=== PATIENT | female | born 1950 | race African-American/Black ===

== ENCOUNTER 2019-04-04 00:57 | Inpatient (IN) | payer OTHER ==
[~2019-04-04] VITALS: Ht 160 cm; Wt 40.7 kg
[2019-04-04] VITALS (31 sets, daily range): BP systolic 41–124; BP diastolic 18–78
--- NOTE | ~2019-04-04 | EMS ---
[address] [address] EMS Patient Care Report Name: ELAINE ARANDA Room #: 236-P ADM IN M.R.#: [id number] Admission: 04/04/19 Attend Phys: Chase Dill MD Discharge: Date of : 48 Report #: [id number] THIS REPORT FOR: //name// Report Transmitted: 04/04/2019 05:06 EMS Care Summary [place], [place]/[facility] Incident [id number] @ 04/04/2019 00:00 Incident Location [id number] [place] [address] Patient ELAINE ARANDA Female, 69 Years 1950 Patient Address [id number] [place], [place] [id number] Patient History Congestive Heart Failure (CHF),Chronic Obstructive Pulmonary Disease (COPD),Hyperlipidemia, Patient Allergies No known allergies, Patient Medications Carvedilol, Lisinopril, Clopidogrel, Atorvastatin, Chief Complaint cardiac arrest Disposition Transported [facility] Reason Cardiac Arrest/ Transported To [facility] Narrative pt complains of cardiac arrest. according to ne staff, pt was found leaning over in chair with emesis- bp [address] [address] EMS Patient Care Report Name: ELAINE ARANDA Room #: 236-P ADM IN M.Cindy.#: [id number] Admission: 04/04/19 Attend Phys: Chase Dill MD Discharge: Date of : 48 Report #: [id number] systolic. they report a minute later pt was unresponsive in cardiac arrest- cpr initiated. pt found lying on floor of nh room in care of facility- cpr in progress. pt is unresponsive/ pulseless/ apneic. cpr continued, ekg, ijel/capnography/ suction, bvm o2, iv, epi,- rosc-strong femoral, vs, bs, d10, 12lead, move to amb, intubation/ suction, glucogan. decision to intubate due to pt vomiting requiring suctioning. during transport pt's hr began to decrease- et tube removed and ijel placed. pt's hr increased back to normal rate. spo2 reading 99 at one point but otherwise unable to detect even after multiple attempts. unable to maintain adequate d10 flow- glucagon administered. Initial Vitals @00:22P: 87,R: 11,EtCO2: 38, @00:15P: 139, @00:22P: 91,R: 9,EtCO2: 35, @00:11P: 43, @00:30P: 91,R: 9,EtCO2: 41, @00:43P: 98,R: 11,EtCO2: 21,SpO2: 85, @00:46P: 88,R: 9,EtCO2: 20, @00:45P: 88,R: 9,EtCO2: 21, @00:17P: 159,EtCO2: 31, @00:41P: 97,R: 13,EtCO2: 20, @00:39P: 103,R: 16,EtCO2: 21,SpO2: 100, @00:50P: 48,R: 10,EtCO2: 19, @00:43P: 97,R: 12,EtCO2: 23, @00:14P: 172, @00:56P: 106,R: 9,GCS: 3,EtCO2: 25, @00:25P: 97,R: 14,BP: 115/81,Pain: 0/10,GCS: 3,Glucose: 46,EtCO2: 35,Revised Trauma: 8, @00:19P: 94,R: 8,BP: 78/64,GCS: 3,Glucose: 43,EtCO2: 48,Revised Trauma: 5, @00:49P: 44,R: 13,EtCO2: 14, @00:43P: 96,R: 9,EtCO2: 23, @00:18P: 83,R: 9,EtCO2: 39, @00:36P: 101,R: 9,EtCO2: 28,SpO2: 99, @00:55P: 104,R: 12,EtCO2: 23, @00:12P: 140, @00:34P: 102,R: 9,EtCO2: 34, @00:09P: 0,GCS: 3, @00:44P: 91,R: 8,EtCO2: 0, Assessments @00:07MENTAL:Unresponsive,SKIN:Other,HEENT:Eyes: Left Pupil: 5-mm,Eyes: Right Pupil: 5-mm,Head/Face: No Abnormalities,Neck/Airway: No Abnormalities,LUNG SOUNDS:ABDOMEN:PELVIS//GI:Pelvis GUOther,EXTREMITIES:Right Leg: [facility] [address] [facility] [place] [address] EMS Patient Care Report Name: ELAINE ARANDA Room #: 236-P [facility] IN M.R.#: [id number] Admission: 04/04/19 Attend Phys: Chase Dill MD Discharge: Date of : 48 Report #: [id number] Other,Capillary Refill: Right Upper: > 5 Sec,Left Arm: No Abnormalities,Right Arm: No Abnormalities,PULSE:Femoral: Absent,NEURO: Impression Cardiac arrest Procedures @PTAResponse: UnchangedSucceeded@00:07ALS AssessmentSucceeded@00:11Saline Lock 0cc (20 ga) Site: Forearm-RightResponse: UnchangedFailed@00:10iGEL Response: ImprovedSucceeded@00:13Oxygen FlowRate: 15 Device: Bag Valve Mask (BVM) Response: ImprovedSucceeded@00:093-Lead ECGResponse: UnchangedSucceeded@00:14Saline Lock 0cc (22 ga) Site: Forearm-RightResponse: UnchangedSucceeded@00:37Orotracheal Intubation Complications: Patient Vomiting/Aspiration,Response: ImprovedSucceeded@00:11Suction Response: ImprovedSucceeded@00:2212-Lead ECGResponse: UnchangedSucceeded@00:15Epinephrine 1:10 - 1 Milligrams (mg) - Intravenous (IV)Response: Improved@00:37Suction Response: ImprovedSucceeded@00:20Dextrose 10% - 20 Milliliters (ml) - Intravenous (IV)Response: Unchanged@00:43Glucagon - 1 Milligrams (mg) - Intramuscular (IM)Response: Unchanged@00:50iGEL Response: ImprovedSucceeded Timeline COFFEE HOST,Response: UnchangedSucceeded, 00:00,Call Received 00:00,Dispatch Notified 00:00,Dispatched 00:02,En Route 00:05,On Scene 00:07,At Patient 00:07,ALS Assessment,Succeeded, 00:09,3-Lead ECG,Response: UnchangedSucceeded, 00:09,BP: / M,PULSE: 0,RR: R,SPO2: Ox,ETCO2: ,BG: ,PAIN: ,GCS: 3, 00:10,iGEL Response: ImprovedSucceeded, 00:11,Saline Lock 0cc 20 ga Site: Forearm-Right,Response: UnchangedFailed, 00:11,Suction Response: ImprovedSucceeded, 00:11,BP: / M,PULSE: 43,RR: R,SPO2: Ox,ETCO2: ,BG: ,PAIN: ,GCS: , 00:12,BP: / M,PULSE: 140,RR: R,SPO2: Ox,ETCO2: ,BG: ,PAIN: ,GCS: , 00:13,Oxygen FlowRate: 15 Device: Bag Valve Mask (BVM) Response: ImprovedSucceeded, 00:14,Saline Lock 0cc 22 ga Site: Forearm-Right,Response: UnchangedSucceeded, 00:14,BP: / M,PULSE: 172,RR: R,SPO2: Ox,ETCO2: ,BG: ,PAIN: ,GCS: , 00:15,Epinephrine 1:10 - 1 Milligrams (mg) - Intravenous (IV),Response: Improved 00:15,BP: / M,PULSE: 139,RR: R,SPO2: Ox,ETCO2: ,BG: ,PAIN: ,GCS: , 00:17,BP: / M,PULSE: 159,RR: R,SPO2: Ox,ETCO2: 31 ,BG: ,PAIN: ,GCS: , 00:18,BP: / M,PULSE: 83,RR: 9 R,SPO2: Ox,ETCO2: 39 ,BG: ,PAIN: ,GCS: , 00:19,BP: 78/64 M,PULSE: 94,RR: 8 R,SPO2: Ox,ETCO2: 48 ,B,PAIN: ,GCS: 3, 00:20,Dextrose 10% - 20 Milliliters (ml) - Intravenous (IV),Response: Unchanged [facility] [address] [place] [address] EMS Patient Care Report Name: ELAINE ARANDA Room #: 236-P ADM IN Milly#: [id number] Admission: 04/04/19 Attend Phys: Chase Dill MD Discharge: Date of : 48 Report #: [id number] 00:22,12-Lead ECG,Response: UnchangedSucceeded, 00:22,BP: / M,PULSE: 87,RR: 11 R,SPO2: Ox,ETCO2: 38 ,BG: ,PAIN: ,GCS: , 00:22,BP: / M,PULSE: 91,RR: 9 R,SPO2: Ox,ETCO2: 35 ,BG: ,PAIN: ,GCS: , 00:25,BP: 115/81 M,PULSE: 97,RR: 14 R,SPO2: Ox,ETCO2: 35 ,B,PAIN: 0,GCS: 3, 00:30,BP: / M,PULSE: 91,RR: 9 R,SPO2: Ox,ETCO2: 41 ,BG: ,PAIN: ,GCS: , 00:33,Depart Scene 00:34,BP: / M,PULSE: 102,RR: 9 R,SPO2: Ox,ETCO2: 34 ,BG: ,PAIN: ,GCS: , 00:36,BP: / M,PULSE: 101,RR: 9 R,SPO2: 99 Ox,ETCO2: 28 ,BG: ,PAIN: ,GCS: , 00:37,Orotracheal Intubation Complications: Patient Vomiting/Aspiration,,Response: ImprovedSucceeded, 00:37,Suction Response: ImprovedSucceeded, 00:39,BP: / M,PULSE: 103,RR: 16 R,SPO2: 100 Ox,ETCO2: 21 ,BG: ,PAIN: ,GCS: , 00:41,BP: / M,PULSE: 97,RR: 13 R,SPO2: Ox,ETCO2: 20 ,BG: ,PAIN: ,GCS: , 00:43,Glucagon - 1 Milligrams (mg) - Intramuscular (IM),Response: Unchanged 00:43,BP: / M,PULSE: 97,RR: 12 R,SPO2: Ox,ETCO2: 23 ,BG: ,PAIN: ,GCS: , 00:43,BP: / M,PULSE: 98,RR: 11 R,SPO2: 85 Ox,ETCO2: 21 ,BG: ,PAIN: ,GCS: , 00:43,BP: / M,PULSE: 96,RR: 9 R,SPO2: Ox,ETCO2: 23 ,BG: ,PAIN: ,GCS: , 00:44,BP: / M,PULSE: 91,RR: 8 R,SPO2: Ox,ETCO2: 0 ,BG: ,PAIN: ,GCS: , 00:45,BP: / M,PULSE: 88,RR: 9 R,SPO2: Ox,ETCO2: 21 ,BG: ,PAIN: ,GCS: , 00:46,BP: / M,PULSE: 88,RR: 9 R,SPO2: Ox,ETCO2: 20 ,BG: ,PAIN: ,GCS: , 00:49,BP: / M,PULSE: 44,RR: 13 R,SPO2: Ox,ETCO2: 14 ,BG: ,PAIN: ,GCS: , 00:50,iGEL Response: ImprovedSucceeded, 00:50,BP: / M,PULSE: 48,RR: 10 R,SPO2: Ox,ETCO2: 19 ,BG: ,PAIN: ,GCS: , 00:54,At Destination 00:55,BP: / M,PULSE: 104,RR: 12 R,SPO2: Ox,ETCO2: 23 ,BG: ,PAIN: ,GCS: , 00:56,BP: / M,PULSE: 106,RR: 9 R,SPO2: Ox,ETCO2: 25 ,BG: ,PAIN: ,GCS: 3, 01:24,Call Closed Disclaimer v1.1 Copyright 2019 [employer] This EMS Care Summary contains data elements from the applicable legal record (which may be displayed differently). It is designed to provide pertinent information for the following purposes: continuity of care, clinical quality, and state data reporting. The complete legal record is available to ED staff and administrators of the receiving hospital in [facility]'s Patient Tracker. All data is provided "as is."
[2019-04-04 03:01] LABS: ICTOTEST (BILI CONFIRMATORY) Positive (Negative); URINE BILIRUBIN 1+ (Negative); URINE BLOOD 1+ (Negative); URINE CLARITY SL CLOUDY; URINE COLOR YELLOW; URINE GLUCOSE-RANDOM* NEGATIVE (Negative); URINE KETONES 1+ (Negative); URINE LEUKOCYTES-REFLEX 2+ (Negative); URINE NITRITE-REFLEX NEGATIVE (Negative); URINE PROTEIN (DIPSTICK) NEGATIVE (Negative)
[2019-04-04 03:01] LABS: MCH 30.8 pg (26.0-34.0); MCV 96.3 fL (80.0-100.0); PLATELET COUNT 186 thou/uL (150-400); RBC 1.71 mil/uL (4.20-5.00)
[2019-04-04 03:04] LABS: CALCIUM 7.2 mg/dL (8.5-10.1); CREATININE 0.8 mg/dL (0.6-1.0); POTASSIUM 4.4 mmol/L (3.5-5.1)
[2019-04-04 03:05] LABS: HEMOGLOBIN 5.3 gm/dL (12.0-15.0); WBC 1.3 thou/uL (4.0-11.0)
[2019-04-04 03:06] LABS: HEMATOCRIT 16.5 % (37.0-47.0)
[2019-04-04 03:11] LABS: BACTERIA-REFLEX None Seen /HPF (None Seen); SQUAMOUS 0-3 Few /LPF (0-3); TRANSITIONAL EPITHEL CELL 0-3 Few /LPF (None Seen); URINE RBC 3-10 Few /HPF (0-2); YEAST-REFLEX Present (None Seen)
[2019-04-04 03:12] LABS: APTT 58.6 Seconds (24.5-32.8); INR 1.8; PROTIME 19.2 Seconds (9.3-11.4)
[2019-04-04 03:12] LABS: CALCIUM OXALATE 0-3 Few /LPF (None Seen); HYALINE CASTS 0-3 Few /LPF (None Seen); MUCUS 4-6 Moderate strn/LPF (None Seen)
[2019-04-04 03:13] LABS: BE(vivo) -11.3 mmol/L (-2 to +3); HCO3 14.1 mmol/L (22.0-26.0); PCO2 29.1 mmHg (35.0-45.0); PO2 346.2 mmHg (80.0-100.0); sO2 99.7 % (92.0-98.0)
[2019-04-04 03:14] LABS: ALBUMIN 0.7 g/dL (3.4-5.0); DIRECT BILIRUBIN 0.5 mg/dL (<0.1-0.3); MAGNESIUM 1.9 mg/dL (1.8-2.4); TOTAL BILIRUBIN 0.6 mg/dL (<0.1-1.0); TOTAL PROTEIN 3.3 g/dL (6.4-8.2); TROPONIN-I 0.44 ng/mL (<0.06)
[2019-04-04 03:14] LABS: pH 7.303 (7.360-7.450)
[2019-04-04 03:34] LABS: ABSOLUTE NEUTROPHILS 0.9 thou/uL (1.4-8.2); ANISOCYTOSIS 1+; BURR CELLS 1+; HYPOCHROMASIA 1+; MICROCYTES 1+
[2019-04-04 03:38] LABS: LARGE PLATELETS FEW
--- NOTE | 2019-04-04 04:02 | NUR ---
DR DIAZ TALKED WITH DAUGHTER AT 0152
--- NOTE | 2019-04-04 04:53 | NUR ---
PT ADMITTED to ICU room 236 from ED at 0340. Pt is intubated with 7.0, 23 cm at lip, on vent with Tv 400, FiO2 100%, AC 16, peep 5. Pt is non-responsive to all stimuli. ED sheet under pt very bloody and pt is weeping serous or oozing blood from serveral sites. Pt has 4+ pitting edema generalized. Pt has avina cath, cloudy yellow urine wih sediment in bag. SBP 40-60 despite Levophed at 30 mcg/min. Avery Soraino TRAVELING CLERK here at 0345; 1 liter saline and 250 5% albumin given per oders. Dr. Howard notified of admit and pt status. Blood sugar on arrival was 411; D10 stopped. Currently pt on Dopamine at 20 mcg/kg/min and Vasopressin 0.04 units/min, SBP 63. Pt hgb 5.6, will be giving 1 upc as soon as i is ready.
[2019-04-04 05:20] LABS: ABSOLUTE RETIC COUNT 0.0331 10^6/uL; OBSERVED RETIC COUNT 1.9 % (0.6-2.6)
--- NOTE | 2019-04-04 06:17 | NUR ---
ARTERIAL line placed by Dr. Howard in right radial artery; BP 124/72 with vasopressors
--- NOTE | 2019-04-04 07:42 | NUR ---
Received report and assumed care of patient now.
[2019-04-04 08:14] LABS: CREATININE 0.9 mg/dL (0.6-1.0); POTASSIUM 4.5 mmol/L (3.5-5.1)
[2019-04-04 08:51] LABS: % SATURATION 107 % (20-39); IRON 59 ug/dL (50-170); TIBC 55 ug/dL (250-450)
[2019-04-04 09:06] LABS: HEMATOCRIT 31.3 % (37.0-47.0); MCH 31.5 pg (26.0-34.0); MCHC 32.9 g/dL (28.0-37.0); MCV 95.6 fL (80.0-100.0); RBC 3.27 mil/uL (4.20-5.00); RDW 14.7 % (10.5-14.5); WBC 2.9 thou/uL (4.0-11.0)
[2019-04-04 09:07] LABS: HEMOGLOBIN 10.3 gm/dL (12.0-15.0)
[2019-04-04 09:12] LABS: FOLIC ACID 16.6 ng/mL (8.6-58.9)
--- NOTE | 2019-04-04 09:20 | NUR ---
Pt hemodynamically unstable. Dr Howard notified. Pt receiving Levophed, Vasopressin and Dopamine infusions.
[2019-04-04 11:21] LABS: BE(vivo) -22.9 mmol/L (-2 to +3); HCO3 6.8 mmol/L (22.0-26.0); PCO2 28.6 mmHg (35.0-45.0); PO2 94.3 mmHg (80.0-100.0); sO2 92.7 % (92.0-98.0)
[2019-04-04 11:23] LABS: pH 6.996 (7.360-7.450)
--- NOTE | 2019-04-04 11:33 | EKG ---
[address] [address] ELECTROCARDIOGRAM REPORT Name: SORIANOELAINE Room #: 236-P ADM IN M.R.#: [id number] Admission: 04/04/19 Attend Phys: Chase Dill MD Discharge: Date of : 48 Report #: [id number] THIS REPORT FOR: //name// [facility] Test Date: 2019-04-04 Test Time: 07:51:53 Pat Name: ELAINE SORIANO Department: Room: 236 P Gender: F Primary Care Sales Representative: [email or web address] : 1950 Requested By: Cami Soriano Order Number: [id number] MD: Catrachito Recio Measurements Intervals [place] Rate: 101 P: 76 AR: 173 QRS: 72 QRSD: 89 T: 257 QT: 395 QTc: 513 Interpretive Statements Sinus tachycardia Low voltage, extremity leads Anteroseptal infarct, old Nonspecific T abnormalities, lateral leads Prolonged QT interval No previous ECG available for comparison Electronically Signed On 04-04-2019 11:33:16 CDT by Catrachito Recio [email or web address] <ELECTRONICALLY SIGNED> By: Catrachito Recio MD 04/04/19 1133 [id number] Catrachito Recio MD /WEI
--- NOTE | 2019-04-04 12:05 | NUR ---
Completed notification of pt to [facility]. Instruction to call back if clinical change or discussion of comfort care.
[2019-04-04 12:20] LABS: HEMATOCRIT 21.5 % (37.0-47.0); MCH 31.7 pg (26.0-34.0); MCHC 32.7 g/dL (28.0-37.0); MCV 97.1 fL (80.0-100.0); RBC 2.21 mil/uL (4.20-5.00); RDW 14.5 % (10.5-14.5); WBC 2.4 thou/uL (4.0-11.0)
[2019-04-04 15:29] LABS: BE(vivo) -21.9 mmol/L (-2 to +3); HCO3 7.2 mmol/L (22.0-26.0); PCO2 27.7 mmHg (35.0-45.0); PO2 116.7 mmHg (80.0-100.0); sO2 96.2 % (92.0-98.0)
[2019-04-04 15:30] LABS: pH 7.031 (7.360-7.450)
[2019-04-04 16:38] LABS: HEMATOCRIT 23.6 % (37.0-47.0); HEMOGLOBIN 7.7 gm/dL (12.0-15.0); MCHC 32.5 g/dL (28.0-37.0); MCV 92.2 fL (80.0-100.0); RBC 2.55 mil/uL (4.20-5.00); RDW 16.2 % (10.5-14.5); WBC 2.4 thou/uL (4.0-11.0)
[2019-04-04 16:45] LABS: CALCIUM 6.3 mg/dL (8.5-10.1); CREATININE 1.1 mg/dL (0.6-1.0); POTASSIUM 4.4 mmol/L (3.5-5.1)
--- NOTE | 2019-04-04 17:11 | NUR ---
Call placed to Dr Dill for update. Pt increasingly hypotensive with systolic blood pressure in 60's despite maximal support of Levophed, Vasopressin, Neosynephrine and Dopamine at 20 mcg/kg/min. Second unit of blood has been started. Dr Dill wanted to speak with patient's daughter. Daughter brought from waiting area and is speaking with Dr Dill now on the telephone.
--- NOTE | 2019-04-04 17:21 | NUR ---
Spoke with Dr Dill after his conversation with pt's daughter, Yulisa (DPOA). Orders to given no more blood after current unit infused and no additional titration upward of pressors. Instructed to notify Dr Howard to see if he is in agreement. No further labs per Dr Dill.
--- NOTE | 2019-04-04 17:38 | NUR ---
Call placed to Dr Howard. Informed of results of conversation with Dr Dill. Reviewed current hemodynamics, lab results, urine output, Ng drainage. Dr Howard stated he will contact Dr Dill and call back with update.
--- NOTE | 2019-04-04 17:48 | NUR ---
Call returned from Dr Howard. Orders received for Albumin. No additional blood products or vasopressors. Obtain ABG in an hour.
--- NOTE | 2019-04-04 17:58 | 2DMMODE ---
[facility] [place] [address] 2 D/M-MODE ECHOCARDIOGRAM Name: ELAIEN ARANDA Room #: 236-P [facility] IN ..#: [id number] Admission: 04/04/19 Attend Phys: Chase Dill MD Discharge: Date of : 48 Report #: [id number] THIS REPORT FOR: //name// APPROVED REPORT Study performed: 04/04/2019 11:27:19 EXAM: Comprehensive 2D, Doppler, and color-flow Echocardiogram Patient Location: In-Patient Room #: 236 ICU Status: routine BSA: 1.38 HR: 70 bpm BP: 73/55 mmHg Other Information Study Quality: Good Technically limited study due to patient on ventilator. Indications Elevated Troponin 2D Dimensions IVSd: 10.73 (7-11mm) LVOT Diam: 17.99 (18-24mm) LVDd: 32.74 mm PWd: 10.73 (7-11mm) Ascending Ao: 24.92 (22-36mm) LVDs: 28.27 (25-40mm) Left Atrium: 25.45 (27-40mm) Aortic Root: 29.00 mm Aortic Valve AoV Peak Unruly.: 1.10 m/s AO Peak Gr.: 7.52 mmHg LVOT Max P.82 mmHg LVOT Max V: 0.45 m/s CRUZ Vmax: 1.04 cm2 Mitral Valve E/A Ratio: 0.4 MV Decel. Time: 78.15 ms MV E Max Unruly.: 0.24 m/s MV A Unruly.: 0.57 m/s MV PHT: 22.[address] [facility] [address] [place] [address] 2 D/M-MODE ECHOCARDIOGRAM Name: ELAINE ARANDA Room #: 236-P ADM IN .R.#: [id number] Admission: 04/04/19 Attend Phys: Chase Dill MD Discharge: Date of : 48 Report #: [id number] PV Peak Unruly.: 0.53 m/s PV Peak Gr.: 1.14 mmHg Left Ventricle The left ventricle is normal size. There is global hypokinesis of the left ventricle. There is left ventricular hypertrophy. Left ventricular systolic function is moderate to severely decreased. LVEF is 20-25%. Grade I - abnormal relaxation pattern. Right Ventricle Right ventricle is mild to moderately dilated. There is normal right ventricular wall thickness. Right ventricle is hypokinetic. Atria The left atrium size is normal. Right atrium is borderline dilated. Aortic Valve Aortic valve is thickened but has adequate excursion. No aortic regurgitation is present. There is no aortic valvular stenosis. Mitral Valve Mitral valve leaflets are mildly thickened. Trace mitral regurgitation. No evidence of mitral valve stenosis. There is no evidence of mitral valve prolapse. Tricuspid Valve Tricuspid annulus is dilated. There is no tricuspid valve stenosis. Severe tricuspid regurgitation. Pulmonic Valve Pulmonic valve is not well visualized. There is no pulmonic valvular regurgitation. Great Vessels The aortic root is normal in size. The ascending aorta is normal in size. IVC is not well visualized. Pericardium Trace to small pericardial effusion. <Conclusion> The left ventricle is normal size. There is global hypokinesis of the left ventricle. There is left ventricular hypertrophy. [facility] [address] [place] [address] 2 D/M-MODE ECHOCARDIOGRAM Name: ELAINE ARANDA Room #: 236-P [facility] IN .R.#: [id number] Admission: 04/04/19 Attend Phys: Chase Dill MD Discharge: Date of : 48 Report #: [id number] Left ventricular systolic function is moderate to severely decreased. LVEF is 20-25%. Right ventricle is mild to moderately dilated. Right ventricle is hypokinetic. The left atrium size is normal. Right atrium is borderline dilated. Aortic valve is thickened but has adequate excursion. No aortic regurgitation is present. There is no aortic valvular stenosis. Mitral valve leaflets are mildly thickened. Trace mitral regurgitation. No evidence of mitral valve stenosis. Tricuspid annulus is dilated. Severe tricuspid regurgitation. The aortic root is normal in size. Trace to small pericardial effusion. <ELECTRONICALLY SIGNED> By: Catrachito Recio MD 04/04/198 57 57 Catrachito Recio MD /NYDIA
[2019-04-04 18:56] LABS: BE(vivo) -23.6 mmol/L (-2 to +3); HCO3 7.1 mmol/L (22.0-26.0); PCO2 31.8 mmHg (35.0-45.0); PO2 99.8 mmHg (80.0-100.0); sO2 93.1 % (92.0-98.0)
[2019-04-04 18:58] LABS: pH 6.965 (7.360-7.450)
--- NOTE | 2019-04-04 21:26 | NUR ---
ASSUMED CARE OF PT. AT 1900. UNABLE TO READ SPO2 AT THIS TIME DUE TO POOR CIRCULATION. DR. LITTLEJOHN CALLED AND SPOKE WITH FAMILY MEMBER ABOUT PT. CONDITION. CONTINUE TO FOLLOW POC AT THIS TIME.
--- NOTE | 2019-04-05 03:52 | NUR ---
Pt's heart rate has slowed from 120's down to 80's and QRS complex is beginning to widen. Pt's daughter notified of pt decline. MTN updated. Pt is maxed out on Dopamine, Levophed, Neosynephrine, and Vasoprsin.
--- NOTE | 2019-04-05 04:14 | NUR ---
Pt extubated and vasopressors dc'd per request of pt's daughter/Norma ECHOLS.
--- NOTE | 2019-04-05 05:58 | HC ---
[facility] [place] [address] CONSULTATION Name: ELAINE ARANDA Room #: 236-P [facility] IN M.R.#: [id number] Admission: 04/04/19 Attend Phys: Chase Dill MD Discharge: Date of : 48 Report #: [id number] THIS REPORT FOR: //name// CC: Chase Millanbunny Stone DATE OF SERVICE: 04/04/2019 ATTENDING PHYSICIAN: Chase Dill MD REASON FOR CONSULTATION: Status post CPR. HISTORY OF PRESENT ILLNESS: A 69-year-old -[place] woman who resides in a local halfway was found unresponsive. CPR undertaken. She is intubated in the ICU at present. All information gathered from review of records. PAST MEDICAL HISTORY: Extracted from H and P. Recent cardiorespiratory arrest. Significant combined metabolic lactic acidosis. Respiratory failure. Recent open reduction and internal fixation of right femur fracture. Congestive heart failure. Dyslipidemia. Malnutrition. Hypertension. COPD. Tubal ligation. Cholecystectomy. SOCIAL HISTORY: Unable to obtain. FAMILY HISTORY: Unable to obtain. REVIEW OF SYSTEMS: Unable to obtain. PHYSICAL EXAMINATION: GENERAL: Unresponsive woman in the Intensive Care Unit, intubated through oral cavity, on multiple pressors. VITAL SIGNS: Presenting following vital signs: Temperature 94.1, pulse 98, respirations 14, BP 73/39 as low as 41/18. HEENMT: Pupils equal, not particularly reactive. Mouth unable to examine because of orotracheal intubation. LUNGS: Rhonchi, crackles. HEART: S1, S2. ABDOMEN: Mildly distended. Decreased breath sounds. The patient unresponsive and cannot say whether he is tender or not. PELVIC AND RECTAL: Deferred. Saucedo catheter in place, little of urine in collection bag. EXTREMITIES: Recent surgical wound, lateral aspect of the proximal and distal right thigh with micky in place. I suspect not older than one week. Pretibial edema of both legs. NEUROLOGIC: The patient is unresponsive. [facility] [address] [place] [address] CONSULTATION Name: ELAINE ARANDA Room #: 236-P ADM IN [facility]#: [id number] Admission: 04/04/19 Attend Phys: Chase Dill MD Discharge: Date of : 48 Report #: [id number] LABORATORY DATA: Sodium 137, CO2 of 22, BUN 16, creatinine 0.8, glucose 258, SGOT 84, calcium 7.2, possible reflecting hypoalbuminemia, which the albumin is actually 0.7 g/dL. Troponin mildly elevated, lactic acid elevated. Protime 19.2 seconds, INR 1.9, APTT 58.6. WBC 1300, hemoglobin 5.3 g/dL, platelets are 186,000. White blood cell count revealed 24% segmented neutrophils, 45% bands. Procalcitonin normal. Urinalysis positive ____ test, 4+ urobilinogen, pyuria, microscopic hematuria, no bacteriuria, and funguria. ABGs: pH 7.30, pCO2 of 29, pO2 of 346, bicarbonate 14.1. Lactate 6.35. These set of gases on FiO2 of 100%, tidal volume 500 and 5 of PEEP. Cultures negative so far. RADIOLOGY EVALUATION: All pending. MEDICATIONS: The patient is currently on Zosyn 3.37 grams IV every 8 hours, chlorhexidine oral care, Atrovent and albuterol inhalation treatment, pantoprazole, dopamine, phenylephrine, hydrocortisone, epinephrine drips. She is also receiving vancomycin 1000 mg being managed by pharmacy. She is on norepinephrine. ASSESSMENT: 1. Status post CPR. 2. In view of recent surgical intervention to the right lower extremity, must rule out pulmonary embolism. 3. Combined metabolic and lactic acidosis. 4. Leukopenia. 5. Severe anemia. 6. Severe malnutrition. 7. Status post recent open reduction and internal fixation of right femur fracture. SUGGESTIONS: Recommend to continue combination with Zosyn and vancomycin, fluid and pressor resuscitation. I agree with hydrocortisone. Prognosis poor. Survival doubtful. Dr. Dill, thank you for requesting my suggestions. <ELECTRONICALLY SIGNED> By: Kaz Recio MD 04/05/19 0558 [id number] Kaz Recio MD /nt
--- NOTE | 2019-04-05 06:43 | NUR ---
Pt extubated at 0410, at 416.
--- NOTE | 2019-04-05 11:55 | HC ---
[facility] [place] [address] CONSULTATION Name: ELAINE ARANDA Room #: 236-[facility] IN M.R.#: [id number] Admission: 04/04/19 Attend Phys: Chase Dill MD Discharge: 04/05/19 Date of : 48 Report #: [id number] THIS REPORT FOR: //name// CC: Chase Stone DATE OF SERVICE: 04/04/2019 REASON FOR CONSULTATION: Hypoglycemia. HISTORY OF PRESENT ILLNESS: This is a 69-year-old female patient who presented earlier today after having suffered a cardiopulmonary arrest at her detention. The patient arrived after CPR and has been resuscitated for close to 10 minutes and ended up being mechanically ventilated. Her background is significant for hip fracture that she had undergone hip repair surgery for earlier this month as well as a background as noted for hypertension, hyperlipidemia, COPD, heart failure as well as anemia. By family's account, the patient has had a gradually declining health over the past 2 months and had not been eating much at all with declining body weight. On arrival to the ER, the patient was hypotensive, unresponsive and amongst other things, her blood glucose value was found to be at 20 mg/dL. Subsequently, the patient was resuscitated with IV dextrose and glucagon. Her blood glucose values have gone up gradually to what they become hyperglycemic in the 300-400 range. Subsequently, the patient's dextrose infusion was stopped, but she continues to get some dextrose that is included in her ongoing pressor therapy. Again, the patient does not have a past medical history of diabetes mellitus. REVIEW OF SYSTEMS: Could not be obtained due to the patient's ventilated, sedated state. PAST MEDICAL HISTORY: Past medical history which was acquired from the chart as well as from some of her family members include: 1. Hypertension. 2. Hyperlipidemia. 3. Chronic obstructive pulmonary disease. 4. Gastroesophageal reflux disease. 5. Diastolic heart failure. 6. Right femoral fracture. 7. Malnourishment. 8. Bladder dysfunction. PAST SURGICAL HISTORY: Tubal ligation, cholecystectomy, right hip repair surgery. OUTPATIENT MEDICATIONS: Reviewed in the patient's chart. However, current medications include: [facility] [address] [place] [address] CONSULTATION Name: ELAINE ARANDA Room #: 236-P [facility] IN ..#: [id number] Admission: 04/04/19 Attend Phys: Chase Dill MD Discharge: 04/05/19 Date of : 48 Report #: [id number] 1. Zosyn. 2. Levophed. 3. Dopamine. 4. Vasopressin. 5. Pantoprazole. 6. Albuterol ipratropium. 7. Calcium chloride. 8. Hydrocortisone. SOCIAL HISTORY: She lives at a detention. She has 7 children and many grandkids. PHYSICAL EXAMINATION: GENERAL: This is an elderly -Burmese female patient who appears emaciated. VITAL SIGNS: Blood pressure is 78/57 mmHg, heart rate of 77 beats per minute, respiration 18 per minute, temperature is 35.6 Celsius. CONSTITUTIONAL: The patient is intubated and sedated, somnolent and unresponsive. HEENT: Anicteric sclerae. NECK: Supple, without JVD or carotid bruits. I do not appreciate thyromegaly. CHEST: Shows limited air entry bilaterally with coarse breath sounds and rales, but no wheezes. HEART: Regular rate and rhythm without murmurs. ABDOMEN: Soft and lax without tenderness or guarding. EXTREMITIES: Lower extremity exam is noted for trace ankle edema bilaterally. NEUROLOGIC: The patient is somnolent, comatose, intubated and unresponsive. PSYCHIATRIC: Cannot be assessed due to the patient's unresponsive state. LABORATORY RESULTS: Blood glucose values on arrival was 20 mg/dL or less than 20 mg/dL, was resuscitated and was somewhat resistant to this effort over an hour and a half, but then eventually at 4:00 a.m., reached 411 and then 331 mg/dL. Sodium 135, potassium 4.5, chloride 107, CO2 14, anion gap of 14, BUN 18, creatinine 0.9. AST 84, total bilirubin 0.6, magnesium 1.9, alkaline phosphatase 114, ALT 22, total protein 3.3, albumin 0.7, GFR 75. Lactic acid 6.1, troponin 0.24. White blood count 2.9, hemoglobin 10.3, hematocrit 31.3, platelets 101. TSH 2.93. Ferritin 3067. ASSESSMENT AND PLAN: 1. Hypoglycemia. This was documented on presentation and was severe at less than 20 mg/dL. I believe, this was for the most part and inclusion of her overall drastic presentation, which included a cardiopulmonary arrest and also reflects a poor baseline state of malnutrition and under nourishment as judged by her albumin is 0.7. The patient does not have a prior history of diabetes mellitus. [facility] [address] [facility] [place] [address] CONSULTATION Name: ELAINE ARANDA Room #: 236-P [facility] IN M.R.#: [id number] Admission: 04/04/19 Attend Phys: Chase Dill MD Discharge: 04/05/19 Date of : 48 Report #: [id number] patient was aggressively resuscitated including with dextrose and glucagon use and successfully so. Her blood glucose values after these efforts had gone up to 300-400 mg/dL, but again, I believe this is in response to these efforts. I have discussed her case with the nursing staff as well as with some of her family members including her grandson, Russel and I explained that at this point in time, we will be stopping the regular infusion of dextrose and monitor her blood glucose values every 6 hours. I will initially use moderate intensity or actually low intensity insulin sliding scale with Humalog and if the need presents itself to address a sustained hyperglycemia, a consideration of IV insulin therapy would be made as well. 2. Hypertension, severe as the patient is septic on presentation, is currently on 4 pressors therapies. Her blood pressure remains fragile and unstable with a systolic blood pressure in the 70s. I will defer this to the Critical Care team. 3. Sepsis. The patient presented with features of sepsis. She is currently on Zosyn. Blood cultures have been collected. 4. Heart failure. As noted above, the patient currently is on 4 pressors. I appreciate this consultation. <ELECTRONICALLY SIGNED> By: Brandon Auguste MD 04/05/19 1155 [id number] Brandon Auguste MD /nt
--- NOTE | 2019-04-07 13:56 | EKG ---
[address] [place] [address] ELECTROCARDIOGRAM REPORT Name: ELAINE SORIANO Room #: 236-[facility] IN M.R.#: [id number] Admission: 04/04/19 Attend Phys: Chase Dill MD Discharge: 04/05/19 Date of : 48 Report #: [id number] THIS REPORT FOR: //name// [facility] Test Date: 2019-04-04 Test Time: 07:51:53 Pat Name: ELAINE SORIANO Department: Room: 236 Gender: F Store Person: [email or web address] : 1950 Requested By: Cami Soriano Order Number: [id number] MD: Catrachito Recio Measurements Intervals Ellinger Rate: 101 P: 76 IN: 173 QRS: 72 QRSD: 89 T: 257 QT: 395 QTc: 513 Interpretive Statements Sinus tachycardia Low voltage, extremity leads Anteroseptal infarct, old Nonspecific T abnormalities, lateral leads No previous ECG available for comparison Electronically Signed On 04-07-2019 13:55:58 CDT by Catrachito Recio [email or web address] <ELECTRONICALLY SIGNED> By: Catrachito Recio MD 04/07/19 1355 [id number] Catrachito Recio MD /EPI
== END 2019-04-05 04:17 | DRG 871 ==
LOC: ER 00:57 → ICU 03:35 → EROBS 03:37 → ICU 03:38
PROVIDERS: Emergency Medicine; Nurse Practitioner Family; Pediatrics; ADMIT Hospitalist
PROC: 5A12012 Performance of Cardiac Output, Single, Manual (ICD-10-PCS; principal; 2019-04-04)
PROC: 30233N1 Transfusion of Nonautologous Red Blood Cells into Peripheral Vein, Percutaneous Approach (ICD-10-PCS; 2019-04-04)
PROC: 5A1935Z Respiratory Ventilation, Less than 24 Consecutive Hours (ICD-10-PCS; 2019-04-04)
PROC: 0BH17EZ Insertion of Endotracheal Airway into Trachea, Via Natural or Artificial Opening (ICD-10-PCS; 2019-04-04)
PROC: 02HV33Z Insertion of Infusion Device into Superior Vena Cava, Percutaneous Approach (ICD-10-PCS; 2019-04-04)
PROC: 03HY32Z Insertion of Monitoring Device into Upper Artery, Percutaneous Approach (ICD-10-PCS; 2019-04-04)
PROC: B34HZZZ Ultrasonography of Right Upper Extremity Arteries (ICD-10-PCS; 2019-04-04)
DX: A41.9 Sepsis, unspecified organism (principal); R65.21 Severe sepsis with septic shock; J96.01 Acute respiratory failure with hypoxia; E43 Unspecified severe protein-calorie malnutrition; J69.0 Pneumonitis due to inhalation of food and vomit; K55.059 Acute (reversible) ischemia of intestine, part and extent unspecified; I50.32 Chronic diastolic (congestive) heart failure; D62 Acute posthemorrhagic anemia; G93.1 Anoxic brain damage, not elsewhere classified; N39.0 Urinary tract infection, site not specified; E87.2 Acidosis; K92.2 Gastrointestinal hemorrhage, unspecified; Z68.1 Body mass index [BMI] 19.9 or less, adult; I11.0 Hypertensive heart disease with heart failure; Z96.641 Presence of right artificial hip joint; D69.6 Thrombocytopenia, unspecified; Z66 Do not resuscitate; E78.5 Hyperlipidemia, unspecified; J44.9 Chronic obstructive pulmonary disease, unspecified; K21.9 Gastro-esophageal reflux disease without esophagitis; F17.210 Nicotine dependence, cigarettes, uncomplicated; D50.9 Iron deficiency anemia, unspecified; E16.2 Hypoglycemia, unspecified; Z90.49 Acquired absence of other specified parts of digestive tract; Z82.49 Family history of ischemic heart disease and other diseases of the circulatory system; Z84.1 Family history of disorders of kidney and ureter; Z79.899 Other long term (current) drug therapy
CPT/HCPCS: 10078; 85076